=== PATIENT | male | born 1965 | race Two or more races ===

== ENCOUNTER 2016-11-09 07:48 | Emergency (ER) | payer SELFPAY ==
[~2016-11-09] VITALS: Ht 170.2 cm; Wt 117.9 kg
[2016-11-09] MEDS ORDERED: 0.9 % SODIUM CHLORIDE 10 ML DISP.SYRIN. IV PRN (08:00)
[2016-11-09] MEDS ORDERED: MORPHINE SULFATE 2 MG/ML DISP.SYRIN. IV/SQ PRN (08:00)
--- NOTE | 2016-11-09 08:03 | PHYS DOC ---
Past Medical History Past Medical History: No Pertinent History Past Surgical History: No Surgical History Alcohol Use: Rarely Drug Use: None Adult General Chief Complaint Chief Complaint: FEVER HPI HPI Patient is a 51 year old male who presents with fever and a dry cough. He states his been going on for about 4 days. He states he has chest discomfort only when he coughs and feels short of breath when he coughs. He denies any history of tobacco abuse. He denies any chest pain other when he is coughing. He denies any dyspnea on exertion. Review of Systems Review of Systems Constitutional: Denies fever or chills [] Eyes: Denies change in visual acuity, redness, or eye pain [] HENT: Denies nasal congestion or sore throat [] Respiratory: Denies shortness of breath, positive for nonproductive cough Cardiovascular: No additional information not addressed in HPI [] GI: Denies abdominal pain, nausea, vomiting, bloody stools or diarrhea [] : Denies dysuria or hematuria [] Musculoskeletal: Denies back pain or joint pain [] Integument: Denies rash or skin lesions [] Neurologic: Denies headache, focal weakness or sensory changes [] Endocrine: Denies polyuria or polydipsia [] Current Medications Current Medications Current Medications Medications (Trade) Dose Ordered Sig/Cindy Start Time Stop Time Status Last Admin Dose Admin Levofloxacin (Levaquin) 500 mg 1X ONCE 11/09/16 09:15 11/09/16 09:16 DC 11/09/16 09:34 500 MG Morphine Sulfate 2 mg 2 mg PRN Q15MIN PRN 11/09/16 08:00 11/09/16 10:12 DC 11/09/16 08:47 2 MG Sodium Chloride (Iv Sodium Chloride 0.9% 1000ml Bag) 1,000 ml @ 1,000 mls/hr Q1H 11/09/16 08:15 11/09/16 09:14 DC 11/09/16 08:44 1,000 MLS/HR Sodium Chloride (Normal Saline Flush) 10 ml QSHIFT PRN 11/09/16 08:00 11/09/16 10:12 DC 11/09/16 08:50 10 ML Allergies Allergies Allergies Coded Allergies Type Severity Reaction Last Updated Verified No Known Drug Allergies 11/09/16 No Physical Exam Physical Exam Constitutional: Well developed, well nourished, no acute distress, non-toxic appearance. [] HENT: Normocephalic, atraumatic, bilateral external ears normal, oropharynx moist, no oral exudates, nose normal. [] Eyes: PERRLA, EOMI, conjunctiva normal, no discharge. [] Neck: Normal range of motion, no tenderness, supple, no stridor. [] Cardiovascular:Heart rate regular rhythm, no murmur [] Lungs & Thorax: Bilateral breath sounds clear to auscultation [] Abdomen: Bowel sounds normal, soft, no tenderness, no masses, no pulsatile masses. [] Skin: Warm, dry, no erythema, no rash. [] Back: No tenderness, no CVA tenderness. [] Extremities: No tenderness, no cyanosis, no clubbing, ROM intact, no edema. [] Neurologic: Alert and oriented X 3, normal motor function, normal sensory function, no focal deficits noted. [] Psychologic: Affect normal, judgement normal, mood normal. [] Current Patient Data Vital Signs Vital Signs Date Time Temp Pulse Resp B/P Pulse Ox O2 Delivery O2 Flow Rate FiO2 11/09/16 09:55 64 19 133/60 94 Room Air 11/09/16 09:30 2 11/09/16 07:51 98.1 98.1 Lab Values Laboratory Tests Test 11/09/16 08:20 11/09/16 08:25 Influenza Type A Antigen Negative (NEGATIVE) Influenza Type B Antigen Negative (NEGATIVE) White Blood Count 7.1x10^3/uL (4.0-11.0) Red Blood Count 5.25x10^6/uL (4.30-5.70) Hemoglobin 14.8g/dL (13.0-17.5) Hematocrit 44.3% (39.0-53.0) Mean Corpuscular Volume 84fL (79-100) Mean Corpuscular Hemoglobin 28pg (25-35) Mean Corpuscular Hemoglobin Concent 33g/dL (31-37) Red Cell Distribution Width 14.3% (11.5-14.5) Platelet Count 236x10^3/uL (140-400) Neutrophils (%) (Auto) 65% (31-73) Lymphocytes (%) (Auto) 23% (24-48) L Monocytes (%) (Auto) 8% (0-9) Eosinophils (%) (Auto) 3% (0-3) Basophils (%) (Auto) 1% (0-3) Neutrophils # (Auto) 4.6x10^3uL (1.8-7.7) Lymphocytes # (Auto) 1.7x10^3/uL (1.0-4.8) Monocytes # (Auto) 0.6x10^3/uL (0.0-1.1) Eosinophils # (Auto) 0.2x10^3/uL (0.0-0.7) Basophils # (Auto) 0.0x10^3/uL (0.0-0.2) Prothrombin Time 12.6SEC (11.7-14.0) Prothrombin Time INR 1.0 (0.8-1.1) Sodium Level 139mmol/L (136-145) Potassium Level 4.0mmol/L (3.5-5.1) Chloride Level 105mmol/L (98-107) Carbon Dioxide Level 26mmol/L (21-32) Anion Gap 8 (6-14) Blood Urea Nitrogen 17mg/dL (8-26) Creatinine 0.7mg/dL (0.7-1.3) Estimated GFR (Cockcroft-Gault) 118.4 Glucose Level 121mg/dL (70-99) H Calcium Level 8.7mg/dL (8.5-10.1) Magnesium Level 1.9mg/dL (1.8-2.4) Total Bilirubin 0.4mg/dL (0.2-1.0) Direct Bilirubin 0.1mg/dL (0.0-0.2) Aspartate Amino Transferase (AST) 67U/L (15-37) H Alanine Aminotransferase (ALT) 112U/L (16-63) H Alkaline Phosphatase 95U/L (46-116) Creatine Kinase 110U/L (39-308) Creatine Kinase MB (Mass) 0.8ng/mL (0.0-3.6) Creatine Kinase MB Relative Index 0.7% (0-4) Troponin I Quantitative < 0.017ng/mL (0.000-0.055) PK-Ifn-G-Type Natriuretic Peptide 22pg/mL (0-124) Total Protein 7.3g/dL (6.4-8.2) Albumin 3.4g/dL (3.4-5.0) Lipase 124U/L (73-393) Thyroid Stimulating Hormone (TSH) 1.381uIU/mL (0.358-3.74) Laboratory Tests 11/09/16 08:25 Laboratory Tests 11/09/16 08:25 EKG EKG EKG shows normal sinus rhythm with a left axis deviation, no ST elevations, T- wave inversions noted in lead 3, QTC 49 ms, as interpreted by me. Radiology/Procedures Radiology/Procedures [facility] [address] [place] [address] IMAGING REPORT Signed PATIENT: DEANNE FOSS ACCOUNT: [id number] : 1965 LOCATION: ER AGE: 51 SEX: M EXAM STATUS: PRE ER ORD. PHYSICIAN: MISTI MORRIS MD REASON: fever, short of breath PROCEDURE: CHEST PA & LATERAL Exam: PA and lateral chest radiograph History: Fever, shortness of breath. Comparison: None. Findings: Cardiac silhouette appears near the upper limits normal for size. No pneumothorax or pleural effusion is seen. Patchy infiltrates are seen in the left upper and left lower lobes. There is additional patchy infiltrate seen at the right lower lung field on the frontal view, possibly correlating to the right lower lobe on the lateral view. Impression: Patchy bilateral infiltrates, compatible with multilobar pneumonia. DICTATED and SIGNED BY: TWIN QUISPE MD DATE: 11/09/16828 CC: MISTI MORRIS MD ~ Impressions: Pneumonia Course & Med Decision Making Course & Med Decision Making Pertinent Labs and Imaging studies reviewed. (See chart for details) Chest x-ray is consistent with pneumonia. The rest of his labs are nonacute. He received 1 dose of Levaquin here and being discharged home with 7 additional days of 500 mg Levaquin. Return precautions given his real plan be discharged in stable condition. Dragon Disclaimer Dragon Disclaimer This electronic medical record was generated, in whole or in part, using a voice recognition dictation system. Departure Departure Impression: Primary Impression: Pneumonia Disposition: 01 HOME, SELF-CARE Patient Instructions: Pneumonia, Adult, [id number] Additional Instructions: You have an infection in your lung and will need to take antibiotics for the next 7 days. Return ER for worsening shortness of breath, fevers, chest pain or other concerns. Scripts Levofloxacin (Levaquin)500 Mg Tablet1 Tab PO DAILY #7 TAB Prov:MISTI MORRIS MD 11/09/16 MISTI MORRIS MD Nov 09, 2016 08:03
[2016-11-09] MEDS ORDERED: IV NORMAL SALINE 1000ML BAG 1,000 ML IV SCH (08:15)
--- NOTE | 2016-11-09 08:32 | RAD ---
Exam: PA and lateral chest radiograph History: Fever, shortness of breath. Comparison: None. Findings: Cardiac silhouette appears near the upper limits normal for size. No pneumothorax or pleural effusion is seen. Patchy infiltrates are seen in the left upper and left lower lobes. There is additional patchy infiltrate seen at the right lower lung field on the frontal view, possibly correlating to the right lower lobe on the lateral view. Impression: Patchy bilateral infiltrates, compatible with multilobar pneumonia.
[2016-11-09 08:33] LABS: BASO % 1 % (0-3); EOS % 3 % (0-3); HEMATOCRIT 44.3 % (39.0-53.0); HEMOGLOBIN 14.8 g/dL (13.0-17.5); LYMPH # 1.7 x10^3/uL (1.0-4.8); LYMPH % 23 % (24-48); MEAN CORPUSCULAR HEMOGLOBIN 28 pg (25-35); MEAN CORPUSCULAR HGB CONC 33 g/dL (31-37); MEAN CORPUSCULAR VOLUME 84 fL (79-100); MONO % 8 % (0-9); NEUT % 65 % (31-73); PLATELET COUNT 236 x10^3/uL (140-400); RED BLOOD COUNT 5.25 x10^6/uL (4.30-5.70); RED CELL DISTRIBUTION WIDTH 14.3 % (11.5-14.5); WHITE BLOOD COUNT 7.1 x10^3/uL (4.0-11.0)
--- NOTE | 2016-11-09 08:33 | EKG ---
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
[2016-11-09 08:42] LABS: PROTHROMBIN TIME PATIENT 12.6 SEC (11.7-14.0)
[2016-11-09 08:46] LABS: CALCIUM 8.7 mg/dL (8.5-10.1); CREATININE 0.7 mg/dL (0.7-1.3); GFR 118.4
[2016-11-09 08:49] LABS: OBC FLU VALID
[2016-11-09 08:55] LABS: ALBUMIN 3.4 g/dL (3.4-5.0); DIRECT BILIRUBIN 0.1 mg/dL (0.0-0.2); MAGNESIUM 1.9 mg/dL (1.8-2.4); TOTAL BILIRUBIN 0.4 mg/dL (0.2-1.0); TOTAL PROTEIN 7.3 g/dL (6.4-8.2)
[2016-11-09 09:00] LABS: CKMB INDEX 0.7 % (0-4); CKMB MASS 0.8 ng/mL (0.0-3.6)
[2016-11-09] MEDS ORDERED: LEVOFLOXACIN 500 MG TABLET PO ONE (09:15)
[2016-11-09] MEDS ORDERED: LEVO500T38 PO (09:30)
[2016-11-09 09:55] VITALS: BP 133/60
== END 2016-11-09 09:55 | disposition home or self-care (01) ==
LOC: ER 07:48
DX: J18.9 Pneumonia, unspecified organism (principal)
CPT/HCPCS: 36415; 71020; 80048; 80076; 82553; 83690; 83735; 83880; 84443; 84484; 85027; 85610; 87804; 93005; 96361; 96374; 99285; J2270; J7030

== ENCOUNTER 2017-05-22 11:32 | Emergency (ER) | payer SELFPAY ==
[~2017-05-22] VITALS: Ht 170.2 cm; Wt 131.1 kg
[~2017-05-22 11:32] MED LIST: LEVO500T59 PO
[2017-05-22 11:50] VITALS: BP 138/81
[2017-05-22] MEDS ORDERED: DIPHTH,PERTUSS(ACELL),TET TOX 0.5 ML DISP.SYRIN. VAX IM ONE (12:15)
--- NOTE | 2017-05-22 12:53 | PHYS DOC ---
Past Medical History Past Medical History: No Pertinent History Past Surgical History: No Surgical History Alcohol Use: Occasionally Drug Use: None Adult General Chief Complaint Chief Complaint: LOWER EXT PAIN HPI HPI Patient is a 51 year old male with no significant medical history who presents today complaining of right lower extremity pain. Patient states the pain began on the right medial knee one week ago. He states the pain was mild in nature. He states today he noted his right jimenez was red and his groin was also painful. Patient denies any trauma. Denies any long car rides. Denies any air travel. Denies any chest pain or shortness of breath. Review of Systems Review of Systems Constitutional: Denies fever or chills [] Eyes: Denies change in visual acuity, redness, or eye pain [] HENT: Denies nasal congestion or sore throat [] Respiratory: Denies cough or shortness of breath [] Cardiovascular: No additional information not addressed in HPI [] GI: Denies abdominal pain, nausea, vomiting, bloody stools or diarrhea [] : Denies dysuria or hematuria [] Musculoskeletal: Denies back pain or joint pain [] Integument: RLE redness and pain Neurologic: Denies headache, focal weakness or sensory changes [] Endocrine: Denies polyuria or polydipsia [] Current Medications Current Medications Current Medications Medications (Trade) Dose Ordered Sig/Cindy Start Time Stop Time Status Last Admin Dose Admin Diphtheria/ Tetanus/Acell Pertussis (Boostrix) 0.5 ml ONCE ONCE 05/22/17 12:15 05/22/17 12:16 DC 05/22/17 12:15 0.5 ML Allergies Allergies Allergies Coded Allergies Type Severity Reaction Last Updated Verified No Known Drug Allergies 11/09/16 No Physical Exam Physical Exam Constitutional: Well developed, well nourished, no acute distress, non-toxic appearance. [] HENT: Normocephalic, atraumatic, bilateral external ears normal, oropharynx moist, no oral exudates, nose normal. [] Eyes: PERRLA, EOMI, conjunctiva normal, no discharge. [] Neck: Normal range of motion, no tenderness, supple, no stridor. [] Cardiovascular:Heart rate regular rhythm, no murmur [] Lungs & Thorax: Bilateral breath sounds clear to auscultation [] Abdomen: Bowel sounds normal, soft, no tenderness, no masses, no pulsatile masses. [] Skin: Warm, dry, right anterior jimenez with mild cellulitis. +1 right lower extremity edema. Back: No tenderness, no CVA tenderness. [] Extremities: No tenderness, no cyanosis, no clubbing, ROM intact, no edema. [] Neurologic: Alert and oriented X 3, normal motor function, normal sensory function, no focal deficits noted. [] Psychologic: Affect normal, judgement normal, mood normal. [] Current Patient Data Vital Signs Vital Signs Date Time Temp Pulse Resp B/P (MAP) Pulse Ox O2 Delivery O2 Flow Rate FiO2 05/22/17 11:50 98.2 80 16 97 Room Air 98.2 EKG EKG [] Radiology/Procedures Radiology/Procedures [] Course & Med Decision Making Course & Med Decision Making Pertinent Labs and Imaging studies reviewed. (See chart for details) Patient has cellulitis to the right lower extremity. Venous Doppler was done to the right lower extremity to rule out DVT. Doppler is negative. Discharged on clindamycin. Tetanus up-to-date. Follow-up with PCP in one week. Dragon Disclaimer Dragon Disclaimer This electronic medical record was generated, in whole or in part, using a voice recognition dictation system. Departure Departure Impression: Primary Impression: Cellulitis of right lower extremity Disposition: 01 HOME, SELF-CARE Condition: STABLE Referrals: NO PCP (PCP) follow up with your doctor in one week Patient Instructions: Cellulitis, [id number] Additional Instructions: You were seen with cellulitis of the right lower extremity. Take the prescribed antibiotics until completed. Keep the affected extremity that clean and dry. Follow-up with your doctor in one week. Come back to the ED if symptoms worsen. Scripts Tramadol Hcl (ULTRAM) 50 Mg Tablet 1 TAB PO Q6HRS, #30 TAB Prov: SHANNAN MIGUEL APRN 05/22/17 Clindamycin Hcl (CLINDAMYCIN HCL) 150 Mg Capsule 3 CAP PO TID, #90 CAP Prov: SHANNAN MIGUEL APRN 05/22/17 SAHNNAN MIGUEL APRN May 22, 2017 12:53
--- NOTE | 2017-05-22 13:17 | RAD ---
Right lower extremity venous duplex ultrasound 05/22/2017 Indication: Right lower extremity cellulitis Comparison study: None Discussion: Ultrasound evaluation of deep veins of right lower extremity was performed. Static images were submitted to PACS. Evaluation includes color Doppler imaging as well as evaluation of venous compressibility. Visualized deep veins are patent and compressible. There is a mildly prominent lymph node in the right groin which retains a fatty hilum and thin cortex, and is most likely reactive. Impression: No evidence of deep venous thrombosis in the right lower extremity
[2017-05-22] MEDS ORDERED: TRAM-48 PO (13:42)
[2017-05-22] MEDS ORDERED: CLIN150C14 PO (13:42)
== END 2017-05-22 13:46 | disposition home or self-care (01) ==
LOC: ER 11:32
DX: L03.115 Cellulitis of right lower limb (principal)
CPT/HCPCS: 90471; 90715; 93971; 99284-25

== ENCOUNTER 2018-12-02 09:25 | Emergency (ER) | payer SELFPAY ==
[~2018-12-02] VITALS: Ht 170.2 cm; Wt 122.5 kg
[~2018-12-02 09:25] MED LIST changes: +CLIN150C14 PO; +TRAM-48 PO
[2018-12-02] MEDS ORDERED: ONDANSETRON PF 4 MG/2 ML VIAL. IV ONE (09:45)
[2018-12-02] MEDS ORDERED: fentaNYL PF VIAL 100 MCG/2 ML VIAL IV ONE (09:45)
[2018-12-02] MEDS ORDERED: IV NORMAL SALINE 1000ML BAG 1,000 ML IV ONE (09:45)
--- NOTE | 2018-12-02 10:09 | PHYS DOC ---
Past Medical History Past Medical History: No Pertinent History Past Surgical History: No Surgical History Alcohol Use: Occasionally Drug Use: None Adult General Chief Complaint Chief Complaint: ABDOMINAL PAIN HPI HPI Patient is a 53 year old male presenting with upper abdominal discomfort sharp times about 16 hours started after eating a fatty meal he had been trying to lose weight but he had a fatty meal yesterday for the first time in a while associated with 1 episode of vomiting 2 episodes of diarrhea no chest pain no fever. No previous surgeries no previous medical history does not have a primary doctor NONRADIATING NO ALLEV FACTORS Review of Systems Review of Systems Constitutional: Denies fever or chills [] Eyes: Denies change in visual acuity, redness, or eye pain [] Cardiovascular: No additional information not addressed in HPI [] GI Musculoskeletal: Denies back pain or joint pain [] Integument: Denies rash or skin lesions [] Neurologic: Denies headache, focal weakness or sensory changes [] Endocrine: Denies polyuria or polydipsia [] All other systems were reviewed and found to be within normal limits, except as documented in this note. Current Medications Current Medications Current Medications Medications (Trade) Dose Ordered Sig/Cindy Start Time Stop Time Status Last Admin Dose Admin Fentanyl Citrate (Fentanyl 2ml Vial) 50 mcg 1X ONCE 12/02/18 09:45 12/02/18 09:47 DC 12/02/18 10:06 50 MCG Iohexol (Omnipaque 300 Mg/ml) 75 ml 1X ONCE 12/02/18 10:45 12/02/18 10:47 DC 12/02/18 10:54 75 ML Ondansetron HCl (Zofran) 4 mg 1X ONCE 12/02/18 09:45 12/02/18 09:47 DC 12/02/18 10:05 4 MG Sodium Chloride 1,000 ml @ 1,000 mls/hr 1X ONCE 12/02/18 09:45 12/02/18 10:44 DC 12/02/18 10:05 1,000 MLS/HR Allergies Allergies Allergies Coded Allergies Type Severity Reaction Last Updated Verified No Known Drug Allergies 11/09/16 No Physical Exam Physical Exam Constitutional: Well developed, well nourished, no acute distress, non-toxic appearance. [] HENT: Normocephalic, atraumatic, bilateral external ears normal, oropharynx moist, no oral exudates, nose normal. [] Eyes: PERRLA, EOMI, conjunctiva normal, no discharge. [] Neck: Normal range of motion, no tenderness, supple, no stridor. [] Cardiovascular:Heart rate regular rhythm, no murmur [] Lungs & Thorax: Bilateral breath sounds clear to auscultation [] Abdomen: Bowel sounds normal, soft, RUQ AND EPGIASTRIC WITH POS MURPHYS tenderness, no masses, no pulsatile masses. [] Skin: Warm, dry, no erythema, no rash. [] Back: No tenderness, no CVA tenderness. [] Extremities: No tenderness, no cyanosis, no clubbing, ROM intact, no edema. [] Neurologic: Alert and oriented X 3, normal motor function, normal sensory function, no focal deficits noted. [] Psychologic: Affect normal, judgement normal, mood normal. [] Current Patient Data Vital Signs Vital Signs Date Time Temp Pulse Resp B/P (MAP) Pulse Ox O2 Delivery O2 Flow Rate FiO2 12/02/18 12:28 58 18 146/79 (101) 94 Room Air 12/02/18 09:33 98.1 98.1 Lab Values Laboratory Tests Test 12/02/18 09:58 White Blood Count 12.9 x10^3/uL (4.0-11.0) H Red Blood Count 5.31 x10^6/uL (4.30-5.70) Hemoglobin 14.9 g/dL (13.0-17.5) Hematocrit 44.2 % (39.0-53.0) Mean Corpuscular Volume 83 fL (79-100) Mean Corpuscular Hemoglobin 28 pg (25-35) Mean Corpuscular Hemoglobin Concent 34 g/dL (31-37) Red Cell Distribution Width 13.9 % (11.5-14.5) Platelet Count 290 x10^3/uL (140-400) Neutrophils (%) (Auto) 72 % (31-73) Lymphocytes (%) (Auto) 19 % (24-48) L Monocytes (%) (Auto) 8 % (0-9) Eosinophils (%) (Auto) 1 % (0-3) Basophils (%) (Auto) 1 % (0-3) Neutrophils # (Auto) 9.3 x10^3uL (1.8-7.7) H Lymphocytes # (Auto) 2.4 x10^3/uL (1.0-4.8) Monocytes # (Auto) 1.0 x10^3/uL (0.0-1.1) Eosinophils # (Auto) 0.1 x10^3/uL (0.0-0.7) Basophils # (Auto) 0.1 x10^3/uL (0.0-0.2) Sodium Level 137 mmol/L (136-145) Potassium Level 4.0 mmol/L (3.5-5.1) Chloride Level 99 mmol/L (98-107) Carbon Dioxide Level 31 mmol/L (21-32) Anion Gap 7 (6-14) Blood Urea Nitrogen 10 mg/dL (8-26) Creatinine 0.7 mg/dL (0.7-1.3) Estimated GFR (Cockcroft-Gault) 117.5 BUN/Creatinine Ratio 14 (6-20) Glucose Level 147 mg/dL (70-99) H Calcium Level 9.1 mg/dL (8.5-10.1) Total Bilirubin 0.8 mg/dL (0.2-1.0) Aspartate Amino Transferase (AST) 41 U/L (15-37) H Alanine Aminotransferase (ALT) 79 U/L (16-63) H Alkaline Phosphatase 110 U/L (46-116) Troponin I Quantitative < 0.017 ng/mL (0.000-0.055) Total Protein 7.3 g/dL (6.4-8.2) Albumin 3.6 g/dL (3.4-5.0) Albumin/Globulin Ratio 1.0 (1.0-1.7) Lipase 97 U/L (73-393) Laboratory Tests 12/02/18 09:58 Laboratory Tests 12/02/18 09:58 EKG EKG []EKG shows a normal sinus rhythm rate of 63 no acute ischemic changes noted interpreted by me at time of encounter. Radiology/Procedures Radiology/Procedures [] Impressions: IMPRESSION: 1. There are multiple nonspecific mesenteric nodes and somewhat enlarged right central mesenteric node,. Findings could be reactive in etiology on postinfectious or postinflammatory basis such as related to mesenteritis although early malignancy such as from lymphoma not excludable by imaging for which clinical evaluation advised. Regarding imaging, potentially short-term follow-up to assess stability such as in 2 months could be beneficial. 2. There is no CT evidence of acute appendicitis. Mild long segment wall thickening such as of the descending to the mid sigmoid colon is not excluded as could be seen with colitis in the appropriate clinical setting. Electronically signed by: Juan Pablo Quezada MD (12/02/2018 11:22 AM) [id number] DICTATED and SIGNED BY: JUAN PABLO QUEZADA MD DATE: 12/02/18 112 Course & Med Decision Making Course & Med Decision Making Pertinent Labs and Imaging studies reviewed. (See chart for details) []Ultrasound showed no gallbladder pathology CT abdomen and pelvis was performed the findings noted above are likely due to viral gastroenteritis patient was advised on the importance of repeat CT in 6 months due to the lymph nodes Zofran was given he felt better after ER treatment follow-up as needed. And as noted above. Dragon Disclaimer Dragon Disclaimer This electronic medical record was generated, in whole or in part, using a voice recognition dictation system. Departure Departure Impression: Primary Impression: Abdominal pain Disposition: HOME, SELF-CARE Condition: STABLE Referrals: NO PCP (PCP) Scripts Ondansetron Hcl (ZOFRAN) 4 Mg Tablet 4 MG PO PRN TID PRN for NAUSEA/VOMITING, #10 nausea/vomiting Prov: SHAHNAZ MARES MD 12/02/18 SHAHNAZ MARES MD Dec 02, 2018 10:09
[2018-12-02 10:11] LABS: BASO # 0.1 x10^3/uL (0.0-0.2); BASO % 1 % (0-3); EOS # 0.1 x10^3/uL (0.0-0.7); EOS % 1 % (0-3); HEMATOCRIT 44.2 % (39.0-53.0); HEMOGLOBIN 14.9 g/dL (13.0-17.5); LYMPH # 2.4 x10^3/uL (1.0-4.8); LYMPH % 19 % (24-48); MEAN CORPUSCULAR HEMOGLOBIN 28 pg (25-35); MEAN CORPUSCULAR HGB CONC 34 g/dL (31-37); MEAN CORPUSCULAR VOLUME 83 fL (79-100); MONO % 8 % (0-9); NEUT # 9.3 x10^3uL (1.8-7.7); NEUT % 72 % (31-73); PLATELET COUNT 290 x10^3/uL (140-400); RED BLOOD COUNT 5.31 x10^6/uL (4.30-5.70); RED CELL DISTRIBUTION WIDTH 13.9 % (11.5-14.5); WHITE BLOOD COUNT 12.9 x10^3/uL (4.0-11.0)
[2018-12-02 10:23] LABS: CALCIUM 9.1 mg/dL (8.5-10.1); CREATININE 0.7 mg/dL (0.7-1.3); GFR 117.5
[2018-12-02 10:29] LABS: ALBUMIN 3.6 g/dL (3.4-5.0); TOTAL BILIRUBIN 0.8 mg/dL (0.2-1.0); TOTAL PROTEIN 7.3 g/dL (6.4-8.2)
--- NOTE | 2018-12-02 10:42 | RAD ---
[facility] LTD History: Right upper quadrant pain Comparison: None. Findings: Multiple sonographic images of the abdomen are submitted. There is no abnormality of the visualized pancreas. There is segmental visualization of the inferior vena cava. Hepatic echotexture is within normal limits, no focal hepatic lesion demonstrated. Right lobe of the liver measured 19.4 cm longitudinal. Gallbladder is present without intraluminal abnormality, wall thickening, pericholecystic fluid. Common bile duct is within normal limits at 0.3 cm. Right kidney measured 14.4 x 6.3 x 6.1 cm, no hydronephrosis. Impression: 1. There is nonspecific right nephromegaly although possibly related to patient's body habitus. No other significant abnormality is demonstrated. Electronically signed by: Dg Arreaga MD (12/02/2018 10:39 AM) [id number]
[2018-12-02] MEDS ORDERED: IOHEXOL 300 MG/ML 100ML VIAL. IV ONE (10:45)
--- NOTE | 2018-12-02 11:24 | EKG ---
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
--- NOTE | 2018-12-02 11:25 | RAD ---
CT ABD PELV W/ IV CONTRST ONLY Indication: Abdominal pain and vomiting, right-sided pain and vomiting for 2 days Technique: Postcontrast CT imaging was performed of the abdomen pelvis, multiplanar reconstruction images submitted. No oral contrast was given. One or more of the following individualized dose reduction techniques were utilized for this examination: 1. Automated exposure control 2. Adjustment of the mA and/or kV according to patient size 3. Use of iterative reconstruction technique. Comparison: None Findings: Despite the administration of contrast, there is only faint enhancement of the abdominal visceral organs. There is some motion degradation. There is no pleural fluid at the visualized lung bases. No significant focal abnormality is identified of the liver, spleen, pancreas. There is no adrenal nodularity. Gallbladder is present without obvious intraluminal abnormality by CT. Both kidneys enhance, no hydronephrosis. Evaluation of bowel is somewhat limited without oral contrast. Bowel is not significantly dilated. Mild long segment wall thickening of the descending through the proximal sigmoid colon is not excluded. There is no free fluid or free air. Normal appendix is visualized. There are multiple small mesenteric nodes, largest about 1.3 cm short axis dimension on the right images 48 series 2 although most of the nodes much smaller. There are some fat-containing inguinal nodes bilaterally although primarily composed of fat rather than solid density. There is spondylosis and facet degenerative change greater inferiorly of the lumbar spine, degree of lateral recess stenosis at what is considered L3-4 and L4-L5. IMPRESSION: 1. There are multiple nonspecific mesenteric nodes and somewhat enlarged right central mesenteric node,. Findings could be reactive in etiology on postinfectious or postinflammatory basis such as related to mesenteritis although early malignancy such as from lymphoma not excludable by imaging for which clinical evaluation advised. Regarding imaging, potentially short-term follow-up to assess stability such as in 2 months could be beneficial. 2. There is no CT evidence of acute appendicitis. Mild long segment wall thickening such as of the descending to the mid sigmoid colon is not excluded as could be seen with colitis in the appropriate clinical setting. Electronically signed by: Dg Arreaga MD (12/02/2018 11:22 AM) [id number]
[2018-12-02] MEDS ORDERED: ONDA4TAB7 PO (11:41)
[2018-12-02 12:28] VITALS: BP 146/79
== END 2018-12-02 12:47 | disposition home or self-care (01) ==
LOC: ER 09:25
DX: R10.11 Right upper quadrant pain (principal); R10.13 Epigastric pain; R11.10 Vomiting, unspecified; R19.7 Diarrhea, unspecified
CPT/HCPCS: 36415; 74177; 76705; 80053; 83690; 84484; 85025; 93005; 96361; 96374; 96375; 99285; J2405; J3010; J7030; Q9967

== ENCOUNTER 2021-03-30 09:47 | Emergency (ER) | payer SELFPAY ==
[~2021-03-30] VITALS: Ht 170.2 cm; Wt 113.6 kg
[~2021-03-30 09:47] MED LIST changes: -CLIN150C14 PO; +CLIN150C16 PO; +ONDA4TAB7 PO
--- NOTE | 2021-03-30 11:25 | PHYS DOC ---
Past Medical History Past Medical History: No Pertinent History Past Surgical History: No Surgical History Smoking Status: Never Smoker Alcohol Use: Occasionally Drug Use: None General Adult EDM: Chief Complaint: DIZZY/LIGHT HEADED HPI: HPI: Patient is a 55 year old male who presents with a week and a half of dizzy nests but not spinning of the room, blurred vision, increased urinary output and increased thirst. He denies headache, syncope, fall, injury, fever, chest pain, shortness of air, nausea, vomiting, diarrhea, numbness or tingling, focal weakness, total vision loss, abdominal pain. Patient has a history of pneumonia and cellulitis. He has had both of his Covid vaccines. Review of Systems: Review of Systems: Constitutional: Denies fever or chills. [] Eyes: Denies change in visual acuity. + Blurred vision [] HENT: Denies nasal congestion or sore throat. + Increased thirst [] Respiratory: Denies cough or shortness of breath. [] Cardiovascular: Denies chest pain or edema. [] GI: Denies abdominal pain, nausea, vomiting, bloody stools or diarrhea. [] : Denies dysuria. + Increased urination [] Musculoskeletal: Denies back pain or joint pain. [] Integument: Denies rash. [] Neurologic: Denies headache, focal weakness or sensory changes. + Dizziness [] Endocrine: Denies polyuria or polydipsia. [] Lymphatic: Denies swollen glands. [] Psychiatric: Denies depression or anxiety. [] Heart Score: C/O Chest Pain: No Risk Factors: Risk Factors: DM, Current or recent (<one month) smoker, HTN, HLP, family history of CAD, obesity. Risk Scores: Score 0 - 3: 2.5% MACE over next 6 weeks - Discharge Home Score 4 - 6: 20.3% MACE over next 6 weeks - Admit for Clinical Observation Score 7 - 10: 72.7% MACE over next 6 weeks - Early Invasive Strategies Allergies: Allergies: Allergies Coded Allergies Type Severity Reaction Last Updated Verified No Known Drug Allergies 11/09/16 No Physical Exam: PE: Constitutional: Well developed, well nourished, no acute distress, non-toxic appearance. [] HENT: Normocephalic, atraumatic, bilateral external ears normal, oropharynx moist, no oral exudates, nose normal. [] Eyes: PERRLA, EOMI, conjunctiva normal, no discharge. [] Neck: Normal range of motion, no tenderness, supple, no stridor. [] Cardiovascular:Heart rate regular rhythm, no murmur [] Lungs & Thorax: Bilateral breath sounds clear to auscultation [] Abdomen: Bowel sounds normal, soft, no tenderness, no masses, no pulsatile masses. [] Skin: Warm, dry, no erythema, no rash. [] Back: No tenderness, no CVA tenderness. [] Extremities: No tenderness, no cyanosis, no clubbing, ROM intact, no edema. [] Neurologic: Alert and oriented X 3, normal motor function, normal sensory function, no focal deficits noted. [] Psychologic: Affect normal, judgement normal, mood normal. [] Normal physical exam EKG: EK and read by Dr. Tom as sinus rhythm and no STEMI [] Radiology/Procedures: Radiology/Procedures: [] Impression: [place] [address] IMAGING REPORT Signed PATIENT: THO YODERUNT: [id number] : 1965 LOCATION: ER AGE: 55 SEX: M EXAM STATUS: REG ER ORD. PHYSICIAN: GIANNI WILSON APRN REASON: dizziness PROCEDURE: PORTABLE CHEST 1V EXAM: Chest, single view. HISTORY: Dizziness. COMPARISON: None. FINDINGS: A frontal view of the chest is obtained. There is no infiltrate, pleural effusion or pneumothorax. The heart is normal in size. IMPRESSION: No acute pulmonary finding. Electronically signed by: Carolann Carmona MD (03/30/2021 11:37 AM) [id number] DICTATED and SIGNED BY: CAROLANN CARMONA MD DATE: 03/30/21 [id number] [address] [id number] IMAGING REPORT Signed PATIENT: THO YODERUNT: [id number] : 1965 LOCATION: ER AGE: 55 SEX: M EXAM STATUS: REG ER ORD. PHYSICIAN: GIANNI WILSON APRN REASON: dizziness PROCEDURE: CT HEAD WO CONTRAST EXAM: Head CT without contrast. HISTORY: Dizziness. TECHNIQUE: Computed tomographic images of the head were obtained without contrast. *One or more of the following individualized dose reduction techniques were utilized for this examination: 1. Automated exposure control. 2. Adjustment of the mA and/or kV according to patient size. 3. Use of iterative reconstruction technique. COMPARISON: None. FINDINGS: There is no acute or subacute extra-axial or intraparenchymal hemorrhage. There is no mass effect or midline shift. There is no hydrocephalus. The perry-white matter differentiation pattern is intact. There is a chronic left lamina papyracea fracture. The visualized orbits are otherwise unremarkable. The visualized paranasal sinuses mastoid air cells are clear. There is no calvarial lesion. IMPRESSION: No acute intracranial findings. Electronically signed by: Carolann Carmona MD (03/30/2021 11:43 AM) [id number] DICTATED and SIGNED BY: CAROLANN CARMONA MD DATE: 03/30/21 [id number] 0 Course & Med Decision Making: Course & Med Decision Making Pertinent Labs and Imaging studies reviewed. (See chart for details) COVID-19 CRITERIA: The patient was evaluated during the global COVID-19 pandemic, and that diagnosis was suspected/considered upon their initial presentation. Their evaluation, treatment and testing was consistent with current guidelines for patients who present with complaints or symptoms that may be related to COVID-19. See HPI. Alert and oriented x4. Ambulatory with steady gait. Speaks in full clear sentences. Unable to read my badge she says is all just looks like a blur. He can see colors. No actual vision loss. Skin pink warm and dry. Lungs are clear all station all lobes. Vital signs within normal limits. No focal weakness. Full sensations intact. PERRLA. Orthostatics normal. blood work unremarkable. Patient states is patient has slightly improved. Patient is can follow-up with a eye doctor of their choosing, [] Dragon Disclaimer: Dragon Disclaimer: This electronic medical record was generated, in whole or in part, using a voice recognition dictation system. COVID-19 Patient Risks: Age 65 or older: No Sign of co-morbidity: Yes Exp to person + for COVID: No Exp to PUI: No Travel from affected area: No Lower respiratory symptoms: No Fever: No Other: Yes (dizziness) PPE Use: Full PPE with N95 mask or PAPR: Yes Departure Departure Impression: Primary Impression: Blurred vision Additional Impressions: Polyuria Polydipsia Disposition: HOME / SELF CARE / HOMELESS Condition: STABLE Referrals: NO PCP (PCP) Jonathan BEATTY MD Patient Instructions: Eye - Blurred Vision Additional Instructions: Follow-up with your primary care doctor and an eye doctor soon as possible. Drink plenty of fluids. If you suddenly lose vision or have a severe headache or focal weakness or numbness and tingling you return to the emergency room. NIHSS Stroke Scale NIH Stroke Scale: NIH Stroke Scale Response (Comments) Value Level of Consciousness: 0 Alert/Responsive 0 LOC Questions: 0 Answers both correctly 0 LOC Commands: 0 Performs both tasks 0 Best Gaze: 0 Normal 0 Visual: 0 No visual loss 0 Facial Palsy: 0 Normal, symmetrical 0 Motor - Left Arm 0 No drift 0 Motor - Right Arm 0 No drift 0 Motor - Left Leg 0 No drift 0 Motor: Right Leg 0 No drift 0 Limb Ataxia: 0 Absent 0 Sensory: 0 No loss 0 Best Language: 0 Normal 0 Dysathria: 0 Normal 0 Extinction and Inattention: 0 Normal 0 Total 0 GIANNI WILSON APRN Mar 30, 2021 11:24
[2021-03-30 11:32] LABS: BILIRUBIN,URINE NEGATIVE (NEG); CLARITY,URINE CLEAR; COLOR,URINE YELLOW; NITRITE,URINE NEGATIVE (NEG); PH,URINE 5.5 (<5.0-8.0); PROTEIN,URINE NEGATIVE (NEG-TRACE); UROBILINOGEN,URINE 0.2 mg/dL (0.2 mg/dL)
[2021-03-30 11:36] LABS: BASO # 0.1 x10^3/uL (0.0-0.2); BASO % 1 % (0-3); EOS # 0.2 x10^3/uL (0.0-0.7); EOS % 2 % (0-3); HEMATOCRIT 43.7 % (39.0-53.0); HEMOGLOBIN 15.1 g/dL (13.0-17.5); LYMPH # 3.2 x10^3/uL (1.0-4.8); LYMPH % 39 % (24-48); MEAN CORPUSCULAR HEMOGLOBIN 29 pg (25-35); MEAN CORPUSCULAR HGB CONC 35 g/dL (31-37); MEAN CORPUSCULAR VOLUME 84 fL (79-100); MONO # 0.6 x10^3/uL (0.0-1.1); MONO % 7 % (0-9); NEUT % 51 % (31-73); PLATELET COUNT 267 x10^3/uL (140-400); RED BLOOD COUNT 5.22 x10^6/uL (4.30-5.70); RED CELL DISTRIBUTION WIDTH 14.1 % (11.5-14.5)
[2021-03-30 11:38] LABS: CALCIUM 9.2 mg/dL (8.5-10.1); CREATININE 0.7 mg/dL (0.7-1.3); GFR 116.7; POTASSIUM 4.5 mmol/L (3.5-5.1)
[2021-03-30 11:38] LABS: BARBITURATES NEG (NEG); BENZODIAZEPINES NEG (NEG); CANNABINOIDS NEG (NEG); COCAINE NEG (NEG); METHADONE NEG (NEG); OPIATES NEG (NEG); PHENCYCLIDINE NEG (NEG)
[2021-03-30 11:39] LABS: AMPHETAMINE/METHAMPHETAMINE NEG (NEG)
--- NOTE | 2021-03-30 11:39 | RAD ---
EXAM: Chest, single view. HISTORY: Dizziness. COMPARISON: None. FINDINGS: A frontal view of the chest is obtained. There is no infiltrate, pleural effusion or pneumo thorax. The heart is normal in size. IMPRESSION: No acute pulmonary finding. Electronically signed by: Carolann Roca MD (03/30/2021 11:37 AM) [id number]
[2021-03-30 11:44] LABS: ALBUMIN 3.5 g/dL (3.4-5.0); TOTAL BILIRUBIN 0.5 mg/dL (0.2-1.0); TOTAL PROTEIN 6.9 g/dL (6.4-8.2)
--- NOTE | 2021-03-30 11:46 | RAD ---
EXAM: Head CT without contrast. HISTORY: Dizziness. TECHNIQUE: Computed tomographic images of the head were obtained without contrast. *One or more of the following individualized dose reduction techniques were utilized for this examina tion: 1. Automated exposure control. 2. Adjustment of the mA and/or kV according to patient size. 3. Use of iterative reconstruction technique. COMPARISON: None. FINDINGS: There is no acute or subacute extra-axial or intraparenchymal hemorrhage. There is no mass effect or midline shift. There is no hydrocephalus. The perry-white matter differentiation pattern is intact. There is a chronic left lamina papyracea fra cture. The visualized orbits are otherwise unremarkable. The visualized paranasal sinuses mastoid air cells are clear. There is no calvarial lesion. IMPRESSION: No acute intracranial findings. Electronically signed by: Carolann Roca MD (03/30/2021 11:43 AM) [id number]
[2021-03-30 11:47] LABS: BACTERIA,URINE 0 /HPF (0-FEW); RBC,URINE 0 /HPF (0-2); WBC,URINE RARE /HPF (0-4)
[2021-03-30] MEDS ORDERED: MECLIZINE HCL 12.5 MG TABLET. PO ONE (12:00)
[2021-03-30 12:20] VITALS: BP 128/70
--- NOTE | 2021-03-30 17:26 | EKG ---
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
--- NOTE | 2021-03-31 08:17 | NUR ---
IP: Informed pt of negative covid test. Pt verbalized understanding.
== END 2021-03-30 13:33 | disposition home or self-care (01) ==
LOC: ER 09:47
DX: H53.8 Other visual disturbances (principal); Z20.822 Contact with and (suspected) exposure to COVID-19; R35.8 Other polyuria; R63.1 Polydipsia; R51.9 Headache, unspecified
CPT/HCPCS: 36415; 70450; 71045; 80053; 80307; 81001; 83735; 83880; 84484; 85025; 93005; 99285; J8597; U0003; U0005